=== PATIENT | male | born 1975 | race African-American/Black ===

== ENCOUNTER 2020-09-27 19:01 | Emergency (ER) | payer SELFPAY ==
[2020-09-27] MEDS ORDERED: Fentanyl 100 MCG/2 ML VIAL ONE (19:15)
[2020-09-27] MEDS ORDERED: Ondansetron PF 4 MG/2 ML Vial ONE ×2 (19:16→19:58)
[2020-09-27] MEDS ORDERED: Ketamine 50 MG/ML (10ML VIAL) ONE (19:58)
--- NOTE | 2020-09-27 20:16 | RAD ---
LEFT WRIST THREE VIEWS: 09/27/20 There is a comminuted fracture of the distal radius with dorsal displacement of the distal fragments. Additionally, there is a fracture at the base of the ulnar styloid process with marked displacement of the fracture fragment towards the radial side of the distal ulna. The carpal bones appear intact. The visible portions of the metacarpals appear intact. IMPRESSION: Displaced fractures of the distal radius and ulna. POS: HOME
--- NOTE | 2020-09-27 21:56 | RAD ---
LEFT WRIST THREE VIEWS: 09/27/20 (Post reduction #1) Initial reduction shows improved alignment of the distal radial fragment, though it is still pushed s omewhat dorsally compared to the anatomical position. The ulnar styloid process fragment is markedly displaced as before. IMPRESSION: Improved angulation of the distal radial fracture. POS: HOME
--- NOTE | 2020-09-27 21:57 | RAD ---
LEFT WRIST 09/27/20 (post reduction #2) After further reduction, there is slightly improved positioning of the distal radial fragment compare d to post reduction #1. It is still slightly dorsally placed but it is not angulated as much as befor e. IMPRESSION: Slight improvement in the distal radial fragment. POS: HOME
[2020-09-28 18:14] LABS: SARS-CoV-2 MS2 Positive; SARS-CoV-2 N Gene Negative; SARS-CoV-2 S Gene Negative; SARS-CoV-2 by NAA Not Detected (NotDetected); SARS-CoV-2 orf1ab Negative
== END 2020-09-27 20:43 | disposition home or self-care (01) ==
LOC: BURERS 19:01
DX: S52.502A Unspecified fracture of the lower end of left radius, initial encounter for closed fracture (principal); S52.612A Displaced fracture of left ulna styloid process, initial encounter for closed fracture; F17.210 Nicotine dependence, cigarettes, uncomplicated; W19.XXXA Unspecified fall, initial encounter
CPT/HCPCS: 25605; 87635; 96374; 96375; 96376; J2405; J3010; U0003